=== PATIENT | female | born 1940 | race Caucasian/White ===

== ENCOUNTER 2018-02-23 12:15 | Observation (INO) | payer MEDICARE, BC ==
[~2018-02-23] VITALS: Ht 157.5 cm; Wt 99.2 kg
[~2018-02-23 12:15] MED LIST: ASPIRIN E.C. 8181 MG PO; BETIMOL 0.5% OPH5 ML OU; CALCIUM 1200 601 SGL PO; CELEBREX 200MG200 MG PO; CEPHALEXIN250 M1; FISH OIL1000 MG PO; GLUCOPHAGE500 MG/TAB PO; HCTZ 25MG TAB25 MG PO; ISOPTIN SR240 MG PO; LEXAPRO 5MG5 MG PO; LIVALO4 MG PO; LOTENSIN40 MG PO; LUMIGAN 5 ML5 M1 OP; MULTIVITAMIN FO1 CAP PO; MYRBETR50MG PO; NORCO 325 MG-51 TAB PO; PRILOSEC10 MG PO; TYLENOL ARTHRI650 M1 PO; TYLENOL W/COD1 UDTAB PO
[2018-02-23 12:36] LABS: BASO # 0.1 (0.0-0.2); BASO % 0.8 % (0.0-2.0); EOS # 0.4 (0.0-0.7); EOS % 4.2 % (0-4.0); GRAN # 5.6 (1.4-6.5); GRAN % 57.6 % (42.2-75.2); HEMATOCRIT 37.4 % (37.0-47.0); HEMOGLOBIN 13.1 g/dl (12.5-16.0); LYMPH # 2.8 (1.2-3.4); LYMPH % 29.2 % (20.0-51.0); MEAN CELL VOLUME 87 fl (80.0-100.0); MEAN CORPUSCULAR HEMOGLOBIN 31 pg (27.0-31.0); MEAN CORPUSCULAR HGB CONC 35 g/dl (33.0-37.0); MEAN PLATELET VOLUME 9.9 fl (7.4-10.4); MONO # 0.7 (0.1-0.6); MONO % 7.5 % (1.7-9.3); PLATELET COUNT 197 K/mm3 (130-400); REDCELL DISTRIBUTION WIDTH-CV 12.7 % (11.5-14.5)
[2018-02-23 12:49] LABS: BILIRUBIN,TOTAL 0.5 mg/dL (0.0-1.0); CALCIUM 9.7 mg/dL (8.4-10.2); CREATININE, serum 1.26 mg/dL (0.52-1.25); POTASSIUM 3.8 mmol/L (3.4-5.0); TOTAL PROTEIN 6.4 gm/dL (6.4-8.2)
[2018-02-23] MEDS ORDERED: HYGROTON 2525 MG/TAB PO ×2 (13:26→15:11)
[2018-02-23] MEDS ORDERED: PRAVACHOL 40MG40 MG PO ×2 (13:26→15:11)
[2018-02-23] MEDS ORDERED: LEXAPRO20 MG PO ×2 (13:26→15:14)
[2018-02-23] MEDS ORDERED: MAG-OX 400400 MG/TAB PO (15:10)
[2018-02-23] MEDS ORDERED: VERELAN240 MG PO (15:11)
[2018-02-23 17:46] VITALS: BP 107/89; PULSE 77; TEMP 97.9
[2018-02-23] MEDS ORDERED: TOVIAZ8 MG PO (18:06)
[2018-02-23] MEDS ORDERED: CELEBREX 200MG200 MG PO (18:07)
[2018-02-23 20:00] VITALS: BP 125/84; PULSE 81; TEMP 98.5
[2018-02-24] VITALS: BP 124/45; PULSE 72; TEMP 98.4
[2018-02-24 04:00] VITALS: BP 131/50; PULSE 71; TEMP 98.3
[2018-02-24 07:37] LABS: CALCIUM 9.1 mg/dL (8.4-10.2); CREATININE, serum 1.14 mg/dL (0.52-1.25); POTASSIUM 3.8 mmol/L (3.4-5.0)
[2018-02-24 07:58] VITALS: BP 122/51; PULSE 90; TEMP 98.6
== END 2018-02-24 11:30 | disposition home or self-care (01) ==
LOC: COL.ER 12:15 → MEDICAL 13:20
PROVIDERS: Family Medicine; Surgery
DX: S06.0X1A Concussion with loss of consciousness of 30 minutes or less, initial encounter (principal); I10 Essential (primary) hypertension; E11.9 Type 2 diabetes mellitus without complications; K21.9 Gastro-esophageal reflux disease without esophagitis; I35.0 Nonrheumatic aortic (valve) stenosis; Z90.710 Acquired absence of both cervix and uterus; W10.9XXA Fall (on) (from) unspecified stairs and steps, initial encounter; Y93.01 Activity, walking, marching and hiking; Y92.099 Unspecified place in other non-institutional residence as the place of occurrence of the external cause
CPT/HCPCS: G0378; G8978-GP; G8979-GP; J7030

== ENCOUNTER → 2018-03-11 | Outpatient (CLI) | payer MEDICARE, BC ==
[~2018-03-11] MED LIST changes: +HYGROTON 2525 MG/TAB PO; +LEXAPRO20 MG PO; +MAG-OX 400400 MG/TAB PO; +PRAVACHOL 40MG40 MG PO; +TOVIAZ8 MG PO; +VERELAN240 MG PO
== END ==
LOC: COL.VAS 10:43
DX: I08.3 Combined rheumatic disorders of mitral, aortic and tricuspid valves (principal); E87.1 Hypo-osmolality and hyponatremia

== ENCOUNTER 2018-05-05 07:40 | Day surgery (SDC) | payer MEDICARE, BC ==
[~2018-05-05] VITALS: Ht 157.6 cm; Wt 110.0 kg
[~2018-05-05 07:40] MED LIST changes: -CALCIUM 1200 601 SGL PO; +CALCIUM 600-D 61 TAB PO
[2018-05-05] MEDS ORDERED: HYGROTON 2525 MG/TAB PO (08:11)
[2018-05-05] MEDS ORDERED: COLACE 100100 MG/CAP PO (08:12)
[2018-05-05] MEDS ORDERED: LUTEIN20 M1 PO (08:17)
[2018-05-05 08:23] VITALS: BP 159/69; PULSE 87; TEMP 98.4
[2018-05-05 10:58] VITALS: BP 128/76; PULSE 82
== END 2018-05-05 11:29 | disposition home or self-care (01) ==
LOC: COL.CAR 07:40
DX: R55 Syncope and collapse (principal); M19.90 Unspecified osteoarthritis, unspecified site; F32.9 Major depressive disorder, single episode, unspecified; F41.9 Anxiety disorder, unspecified; I12.9 Hypertensive chronic kidney disease with stage 1 through stage 4 chronic kidney disease, or unspecified chronic kidney disease; E11.22 Type 2 diabetes mellitus with diabetic chronic kidney disease; N18.3 Chronic kidney disease, stage 3 (moderate); I35.0 Nonrheumatic aortic (valve) stenosis; E78.2 Mixed hyperlipidemia; E66.9 Obesity, unspecified; Z68.41 Body mass index [BMI] 40.0-44.9, adult; Z88.0 Allergy status to penicillin; Z88.8 Allergy status to other drugs, medicaments and biological substances; Z79.82 Long term (current) use of aspirin; Z79.84 Long term (current) use of oral hypoglycemic drugs; Z82.49 Family history of ischemic heart disease and other diseases of the circulatory system

== ENCOUNTER 2018-06-22 15:01 | Inpatient (IN) | payer MEDICARE, BC ==
[~2018-06-22] VITALS: Ht 157.5 cm; Wt 89.2 kg
[~2018-06-22 15:01] MED LIST changes: +COLACE 100100 MG/CAP PO; +LUTEIN20 M1 PO
[2018-08-11] VITALS (13 sets, daily range): BP systolic 110–154; BP diastolic 38–91; PULSE 68–92; TEMP 97–98.7
[2018-08-11] MEDS ORDERED: VERAPAMIL240 MG/TAB PO (01:36)
[2018-08-11] MEDS ORDERED: PRAVACHOL80 MG PO (01:38)
--- NOTE | 2018-08-11 06:12 | NUR ---
Patient prepared for surgery with no incidents. Admission B and assessment completed. Med-rec and allergies reviewed and confirmed. 20 g IV started to left forearm. Pre-op medications given. Patient sent down to surgry with Jayce at this time.
--- NOTE | 2018-08-11 07:05 | NUR ---
report from Hina VELASCO.
--- NOTE | 2018-08-11 10:34 | NUR ---
PT TO ROOM 326 PER BED WITH ARIANA VELASCO PACU. REPORT FROM EDWIN VELASCO PACU @ [id number]. PT IS A/O X3, DRESSING TO RIGHT SHOULDER CDI WITH AQUACEL OVER INCISION. ABDUCTOR BRACE IN PLACE. RADIAL PULSE INTACT FINGERS PINK AND WARM. PT DENIES PAIN AT THIS TIME. IV TO PUMP. SCDS PLACED BILATERALLY. ORIENTED PT TO ROOM. PT DENIES FURTHER NEEDS.
--- NOTE | 2018-08-11 10:50 | NUR ---
PT RESTING IN BED, RIGHT RADIAL PULSE STRONG, FINGERS WARM, MOTOR CONTROL RETURN TO HAND. PT REPORTING INCREASING PAIN TO RIGHT SHOULDER. PO MEDS INGRID GIVEN ORDERS.
--- NOTE | 2018-08-11 14:45 | NUR ---
SW met with patient to discuss discharge planning. Patient lives in [facility] and is independent with ADL's. Patients PCP is Dr Warner Oglesby and she obtains her medications from [facility]. Patient plans to return home on DC and her daughter will be staying with her for a few days to help. She reports her neighbors are also very helpful. Patient will be going to the orthopedic center for outpatient therapy. There are no anticipated discharge needs at this time.
--- NOTE | 2018-08-11 18:54 | NUR ---
report to Hina VELASCO.
--- NOTE | 2018-08-11 19:30 | NUR ---
Assessment completed. Patient is A&O x 4. VSS, on room air. Denies any pain at this time. Patient is able to move her right hand and reports feeling sensation, denies any numbness or tingling at this time. Aquacell dressing to right shoulder is CDI with a fresh ice pack applied. Right shoulder abductor brace in place. Tolerating diet with no c/o nausea. Voiding with no difficulities. INT to left wrist with intermittent antibiotic. Up with assist x 1, patient needs to be reminded not to hold on or grab things with her right hand/arm. Denies any concerns or needs at this time. Bed is in a low position with call light in reach.
[2018-08-12 00:49] VITALS: BP 121/33; PULSE 76; TEMP 98
[2018-08-12 04:57] VITALS: BP 128/78; PULSE 69; TEMP 98.5
--- NOTE | 2018-08-12 06:17 | NUR ---
Patient has rested well through the night. VSS. Pain controlled with [place]. Aquacell dressing to right shoulder remains CDI with an ice pack. Up with standby assist through the night with a steady gait. Denies any concerns or needs this morning, call light within reach.
--- NOTE | 2018-08-12 06:50 | NUR ---
report from Hina VELASCO.
[2018-08-12 07:41] LABS: HEMATOCRIT 35.3 % (37.0-47.0); HEMOGLOBIN 11.8 g/dl (12.5-16.0)
[2018-08-12] MEDS ORDERED: ROXICODONE 55 MG/TAB PO (08:02)
[2018-08-12] MEDS ORDERED: TYLENOL 500MG500 MG PO (08:03)
[2018-08-12 08:29] VITALS: BP 100/50; PULSE 75; TEMP 98.2
--- NOTE | 2018-08-12 08:58 | NUR ---
PT UP TO CHAIR AFTER USING BR. AM MEDS GIVEN, PAIN WELL CONTROLLED. PT HAS WORKED WITH PATIENT, DRESSING TO RIGHT SHOULDER CDI, DISCHARGE ORDERS RECIEVED.
[2018-08-12 11:57] VITALS: BP 94/70; PULSE 72; TEMP 99.4
--- NOTE | 2018-08-12 14:16 | NUR ---
DISCHARGE INTRUCTIONS PROVICDD
== END 2018-08-12 14:21 | disposition home or self-care (01) | DRG 483 ==
LOC: SURG 08-11 05:11 → JCC 08-11 07:30 → SURG 08-12 14:21
PROVIDERS: Physician Assistant; ADMIT Orthopaedic Surgery
PROC: 0RRJ00Z Replacement of Right Shoulder Joint with Reverse Ball and Socket Synthetic Substitute, Open Approach (ICD-10-PCS; principal; 2018-08-11 07:30)
DX: M19.211 Secondary osteoarthritis, right shoulder (principal); Z68.41 Body mass index [BMI] 40.0-44.9, adult; S46.011S Strain of muscle(s) and tendon(s) of the rotator cuff of right shoulder, sequela; W18.30XS Fall on same level, unspecified, sequela; Z85.42 Personal history of malignant neoplasm of other parts of uterus; E11.9 Type 2 diabetes mellitus without complications; I10 Essential (primary) hypertension; E66.01 Morbid (severe) obesity due to excess calories
CPT/HCPCS: A9284; C1713; C1776; J0690; J1100; J1170; J1885; J2370; J2405; J2704; J3010; J7030; J7050

== ENCOUNTER 2020-05-31 08:07 | Day surgery (SDC) | payer MEDICARE, BC ==
[~2020-05-31] VITALS: Ht 157.5 cm; Wt 114.2 kg
[2020-05-31] VITALS (9 sets, daily range): BP systolic 113–149; BP diastolic 40–86; PULSE 58–92; TEMP 97.6–98.6
[~2020-05-31 08:07] MED LIST changes: +CALAN120 MG PO; +LEXAPRO 10MG10 MG PO; +NATURAL MAGNES200 MG PO; +PRAVACHOL80 MG PO; +ROXICODONE 55 MG/TAB PO; +TYLENOL 500MG500 MG PO; +TYLENOL 8 HR PO; +VERAPAMIL180 MG/TAB PO; +VERAPAMIL240 MG/TAB PO
[2020-05-31 09:36] LABS: HEMATOCRIT 41.7 % (37.0-47.0); MEAN CELL VOLUME 88 fl (80.0-100.0); MEAN CORPUSCULAR HEMOGLOBIN 30 pg (27.0-31.0); MEAN CORPUSCULAR HGB CONC 34 g/dl (33.0-37.0); MEAN PLATELET VOLUME 10.3 fl (7.4-10.4); PLATELET COUNT 163 K/mm3 (130-400); RED BLOOD COUNT 4.75 M/mm3 (4.10-5.30); REDCELL DISTRIBUTION WIDTH-CV 13.6 % (11.5-14.5)
[2020-05-31 09:41] LABS: INR 1.1 (0.8-3.0)
[2020-05-31 09:42] LABS: CALCIUM 10.3 mg/dL (8.4-10.2); CREATININE, serum 1.27 (0.52-1.25); POTASSIUM 4.5 mmol/L (3.4-5.0)
--- NOTE | 2020-05-31 11:23 | NUR ---
SEE MERGE DOCUMENTATION FOR MEDICATION ADMINISRATION TIMES AND INTRA/POST PROCEDURE SEDATION ASSESSMENTS.
--- NOTE | 2020-05-31 13:00 | NUR ---
Patient arrived to the floor at this time. She is awake and alert, stable at this time. Pacer and loop recorder removal site is CD&I, ice pack has been applied. Heart sounds are normal on ascultation. Breath sounds are clear throughout. Patient is able to ambulate on her own to restroom via standby, main concern is the movement in her arm. Vitals remained stable. Pedal and radial pulses are intact. Reports mild pain at incision site but states it is not too bad. No other needs at this time. Call light is in reach.
--- NOTE | 2020-05-31 17:36 | NUR ---
Patient has had a good day since arriving from procedure. No complaints of pain other than the mild pain at her incision site. Patient is now in recliner and has been comfortable. Ice pack has been applied on and off, patient says this is soothing. No other needs were expressed at this time. Call light is in reach.
--- NOTE | 2020-05-31 19:00 | NUR ---
Report received. Pt sitting up in chair and denies needs at this time. Call light in reach.
--- NOTE | 2020-05-31 20:30 | NUR ---
Assessment complete. Pt up ambulating in room, gait steady. Sling and ice pack in place to LUE. Ice pack removed at pt request. Reinforced left arm restrictions. Left chest insertion sites x2 covered with steri-strips, gauze, and paper tape, both CDI. Pt denies chest pain, SOA, dizziness or other concerns. 2+ edema to RLE, pt reports baseline. Tylenol administered for report of mild pain at incision site. Heart rate and rhythm regular. Lungs clear to auscultation. A&Ox4. Pt reports home use of 2L O2 by NC at night. Provided pt with NC and set to 2L, notified RT of this. Call light in reach.
[2020-06-01 04:05] VITALS: BP 131/51; PULSE 60; TEMP 97.9
[2020-06-01 07:56] VITALS: BP 123/50; PULSE 64; TEMP 98
--- NOTE | 2020-06-01 08:41 | NUR ---
Pt assessment complete. Pt is sitting up in the recliner upon entry, she is A/o x4. Her breathing is even and unlabored on RA. Pt denies SOB. Denies dizziness. No chest pain or palpitations. Site to mid chest and left chest CDI. No hematoma present. Reports mild soreness to sites. LUE in sling at this time. POC discussed with patient who verbalizes understanding. No needs at this time. Call light within reach.
[2020-06-01 09:18] LABS: CALCIUM 9.7 mg/dL (8.4-10.2); CREATININE, serum 1.19 (0.52-1.25); POTASSIUM 4.2 mmol/L (3.4-5.0)
[2020-06-01 09:24] LABS: BASO % 0.6 % (0.0-2.0); EOS # 0.3 (0.0-0.7); EOS % 3.5 % (0-4.0); GRAN # 4.8 (1.4-6.5); GRAN % 67.9 % (42.2-75.2); HEMATOCRIT 39.7 % (37.0-47.0); HEMOGLOBIN 13.2 g/dl (12.5-16.0); LYMPH # 1.4 (1.2-3.4); LYMPH % 20.3 % (20.0-51.0); MEAN CELL VOLUME 89 fl (80.0-100.0); MEAN CORPUSCULAR HEMOGLOBIN 30 pg (27.0-31.0); MEAN CORPUSCULAR HGB CONC 33 g/dl (33.0-37.0); MEAN PLATELET VOLUME 10.5 fl (7.4-10.4); MONO # 0.5 (0.1-0.6); MONO % 7.3 % (1.7-9.3); PLATELET COUNT 158 K/mm3 (130-400); RED BLOOD COUNT 4.46 M/mm3 (4.10-5.30); REDCELL DISTRIBUTION WIDTH-CV 13.7 % (11.5-14.5)
--- NOTE | 2020-06-01 09:46 | NUR ---
SW met with the patient to discuss discharge plan. The patient lives alone in [place]. She states that her daughter, Catherine (ph#[phone]), lives 6-7 miles away from her. She reports independence with ADLs and a few canes. The patient's PCP is Dr. Mony Narvaez and she receives her medications from [facility]. She reports no difficulties obtaining her meds. The patient does not have a DPOA-HC in EMR, but she states that she does have one completed and that she designated her daughters: Catherine and Evelina (ph#[phone]). The patient plans to return home upon discharge. No additional needs at this time.
[2020-06-01] MEDS ORDERED: CLEOCIN HC150 MG/CAP PO (10:42)
[2020-06-01 11:34] VITALS: BP 163/55; PULSE 69; TEMP 98.1
--- NOTE | 2020-06-01 12:29 | NUR ---
Discharge instructions and paperwork reviewed with patient. LUE restrictions reviewed with patient as well as complications that could evolve with wrong motions of arm. IV dc'd from LFA, catheter tip intact. Pt awaiting ride at this time.
== END 2020-06-01 13:30 | disposition home or self-care (01) ==
LOC: COL.CAR 08:07 → MEDICAL 13:21 → COL.CAR 06-01 13:30
PROVIDERS: Internal Medicine Cardiovascular Disease
DX: I49.5 Sick sinus syndrome (principal); R55 Syncope and collapse; E11.22 Type 2 diabetes mellitus with diabetic chronic kidney disease; I12.9 Hypertensive chronic kidney disease with stage 1 through stage 4 chronic kidney disease, or unspecified chronic kidney disease; N18.9 Chronic kidney disease, unspecified; F32.9 Major depressive disorder, single episode, unspecified; I35.0 Nonrheumatic aortic (valve) stenosis; Z88.0 Allergy status to penicillin; Z88.8 Allergy status to other drugs, medicaments and biological substances
CPT/HCPCS: OP; J2250; J3010; J3370; J7030; J7050; Q9967

== ENCOUNTER 2024-01-26 08:34 | Day surgery (SDC) | payer MEDICARE, BC ==
[2024-01-26] VITALS (11 sets, daily range): BP systolic 108–129; BP diastolic 52–64; PULSE 57–74; TEMP 98.6
[~2024-01-26] VITALS: Ht 157.5 cm; Wt 104.1 kg
[~2024-01-26 08:34] MED LIST changes: +CLEOCIN HC150 MG/CAP PO
[2024-01-26] MEDS ORDERED: Nitroglycerin 2% Topical Oint 1 GM UD TD SCH (09:19)
[2024-01-26 09:24] LABS: HEMATOCRIT 39.5 % (37.0-47.0); HEMOGLOBIN 13.3 g/dl (12.5-16.0); MEAN CELL VOLUME 90 fl (80.0-100.0); MEAN CORPUSCULAR HEMOGLOBIN 30 pg (27-31); MEAN CORPUSCULAR HGB CONC 34 g/dl (33.0-37.0); MEAN PLATELET VOLUME 10.4 fl (7.4-10.4); PLATELET COUNT 157 K/mm3 (130-400); RED BLOOD COUNT 4.37 M/mm3 (4.10-5.30); REDCELL DISTRIBUTION WIDTH-CV 13.2 % (11.5-14.5)
[2024-01-26 09:44] LABS: CALCIUM 10.5 mg/dL (8.4-10.2); CREATININE, serum 1.41 mg/dL (0.57-1.11); POTASSIUM 4.3 mEq/L (3.5-4.5)
[2024-01-26] MEDS ORDERED: 1/2 NS 1,000 ML IV SCH (09:45)
[2024-01-26] MEDS ORDERED: LASIX 20MG TABL20 MG PO (09:46)
[2024-01-26] MEDS ORDERED: VITAMIN D31000 I1 PO (09:48)
[2024-01-26] MEDS ORDERED: CALCIUM 600600 MG PO (09:51)
[2024-01-26] MEDS ORDERED: ELIQUIS 5MG PO (09:54)
[2024-01-26] MEDS ORDERED: SYSTANE 0.4%-0.1 SOL OU (09:54)
[2024-01-26 10:41] LABS: PROTHROMBIN TIME 11.4 SECONDS (9.7-12.8)
[2024-01-26] MEDS ORDERED: niCARdipine (Cath Lab) 100 MCG/ML 10 ML VIAL IA SCH (12:15)
[2024-01-26] MEDS ORDERED: Heparin 1,000 UNITS/ML 10 ML Multi-Dose VIAL IV SCH (12:17)
[2024-01-26] MEDS ORDERED: Midazolam 2 MG/2 ML VIAL IV SCH (12:18)
[2024-01-26] MEDS ORDERED: fentaNYL 50 MCG/ML 2 ML VIAL IV SCH (12:25)
--- NOTE | 2024-01-26 12:28 | NUR ---
See merge for all medication, assessment,intervention, and vital sign times.
[2024-01-26] MEDS ORDERED: Iohexol 350 - 100 ML VIAL INCOR ONE (12:36)
--- NOTE | 2024-01-26 12:45 | NUR ---
Bedside report completed with Jenny POLANCO. Call light within reach, first set of vitals reviewed, fluids at 100 ml/hr, site intact. Jenny Polanco denies questions/concerns at this time.
--- NOTE | 2024-01-26 15:56 | NUR ---
Pt brought to [facility] by wheelchair, accompanied by daughter. Pt is scheduled for a [facility]. IV started, labs drawn. EKG done. Consent for the procedure signed. Meds and HX reviewed with the pt. Pt was taken down to scientific laboratory supervisor for the procedure, once the procedure was done pt came back to [facility] to recover. When the pt got to [facility] the right radial site was assessed, site clean and dry. Pt was offered something to eat and drink accepted a water and muffin. Pt was bedrest for 2 hrs. Once the bedrest time was finished the pt got up with a weak gait to use the restroom. Air was then released from the band 2 mls about every 15 mins. All the air was removed from the band, the site was clean and dry. A band-aid was applied and the deflated radial band was reapplied as a reminder to limit extremity use. Discharge education and information discussed with the pt. No questions at this time. IV dc'd and wrapped with coban. Pt exited the unit by wheelchair accompanied by the nurse to daughters car.
== END 2024-01-26 15:48 | disposition home or self-care (01) ==
LOC: COL.CAR 08:34
PROVIDERS: Internal Medicine Cardiovascular Disease
DX: I35.0 Nonrheumatic aortic (valve) stenosis (principal); I49.5 Sick sinus syndrome; I48.0 Paroxysmal atrial fibrillation; I27.20 Pulmonary hypertension, unspecified; R09.01 Asphyxia; R06.00 Dyspnea, unspecified; R93.1 Abnormal findings on diagnostic imaging of heart and coronary circulation; E66.9 Obesity, unspecified; E78.2 Mixed hyperlipidemia; R53.83 Other fatigue; R55 Syncope and collapse; Z95.0 Presence of cardiac pacemaker; Z79.82 Long term (current) use of aspirin; Z68.41 Body mass index [BMI] 40.0-44.9, adult
CPT/HCPCS: C1769; J1644; J2250; J2404; J3010; Q9967